=== PATIENT | female | born 1980 | race Two or more races ===

== ENCOUNTER 2022-12-16 03:36 | Emergency (ER) | payer OTHER ==
[2022-12-16 03:57] VITALS: BMI 28.9
[2022-12-16 05:41] LABS: INR 1.06 (0.83-1.09); PROTHROMBIN TIME (PATIENT) 12.2 SEC (9.7-13.0)
[2022-12-16 05:44] LABS: ACTIVATED PTT 35.5 SECONDS (25.2-36.5)
[2022-12-16 05:52] LABS: ALBUMIN 3.5 g/dl (3.4-5.0); BLOOD UREA NITROGEN 11.2 mg/dL (7-18); CALCIUM 9.1 mg/dL (8.5-10.1); MAGNESIUM 1.9 mg/dL (1.8-2.4)
[2022-12-16 05:55] LABS: CREATININE 0.6 mg/dL (0.55-1.3)
[2022-12-16 05:57] LABS: BILIRUBIN,TOTAL 0.3 mg/dL (0.2-1); TOT PROT 7.2 g/dl (6.4-8.2)
[2022-12-16 06:21] LABS: BASO % 0.8 % (0-2.0); EOS % 1.8 % (0-4.5); HEMATOCRIT 37.2 % (32.4-45.2); HEMOGLOBIN 12.2 GM/dL (10.7-15.3); LYMPH % 20.8 % (8-40); MCH 27.8 pg (25.7-33.7); MCHC 32.7 g/dl (32.0-36.0); MEAN CELL VOLUME 85.1 fl (80-96); MEAN PLT VOLUME 9.1 fl (7.5-11.1); MONO % 8.9 % (3.8-10.2); NEUT % 67.7 % (42.8-82.8); PLATELET COUNT 299 10^3/uL (134-434); RBC 4.37 M/mm3 (3.60-5.2); RDW 15.3 % (11.6-15.6); WHITE BLOOD COUNT 5.7 K/mm3 (4.0-10.0)
[2022-12-16 08:23] VITALS: BP 116/72; PULSE 56; RESP 16; TEMP 98.2
== END 2022-12-16 10:00 | disposition home or self-care (01) ==
LOC: JER 03:36 → EDBD 03:36 → JER 10:00
DX: M25.562 Pain in left knee (principal); M54.50 Low back pain, unspecified; W01.0XXA Fall on same level from slipping, tripping and stumbling without subsequent striking against object, initial encounter
CPT/HCPCS: 0241U-QW; 36415; 70450-TC; 71045-TC-FY; 72125-TC; 72128-TC; 72131-TC; 72170-TC-FY; 73562-TC-LT-FY; 74177-TC; 80053; 83735; 84484; 84703; 85025; 85610; 85730; 86850; 86900; 86901; 93005; 93010; 99285-25